=== PATIENT | female | born 1995 | race Hispanic/Latino ===

== ENCOUNTER 2017-05-23 19:31 | Observation (INO) | payer OTHER, SELFPAY ==
[2017-05-23 20:29] LABS: BASOPHILS % (AUTO) 0.2 % (0.0-5.0); EOSINOPHILS % (AUTO) 0.2 % (0.0-8.0); HEMATOCRIT 34.8 % (36-48); LYMPHOCYTES % (AUTO) 4.4 % (21.0-51.0); MEAN CORPUSCULAR HEMOGLOBIN 31.6 pg (27.0-33.0); MEAN CORPUSCULAR HGB CONC 34.6 g/dL (32.0-36.0); MEAN CORPUSCULAR VOLUME 91.4 fL (80-100); MONOCYTES % (AUTO) 3.1 % (3.0-13.0); NEUTROPHILS % (AUTO) 92.1 % (40.0-77.0); PLATELET COUNT (AUTO) 276 K/uL (130-400); RED BLOOD CELL COUNT(AUTO) 3.81 MIL/uL (4.00-5.50); RED CELL DISTRIBUTION WIDTH 12.5 % (11.0-15.5); WHITE BLOOD COUNT (AUTO) 17.6 K/uL (4.8-10.8)
[2017-05-23 20:41] LABS: CARBON DIOXIDE 27 mmol/L (21-32); CHLORIDE 98 mmol/L (101-111); CREATININE 0.7 mg/dL (0.5-1.5); GLOMERULAR FILTR. RATE CALC 115 mL/min (>60); GLUCOSE,RANDOM 109 mg/dL (70-105); POTASSIUM 3.9 mmol/L (3.5-5.1); SODIUM SERUM 134 mmol/L (136-145); UREA NITROGEN, BLOOD 6 mg/dL (7-18)
[2017-05-23 20:47] LABS: APPEARANCE,URINE Cloudy (CLEAR); BILIRUBIN,URINE Negative (NEGATIVE); COLOR,URINE Orange (YELLOW); GLUCOSE, URINE (UA) Negative (NEGATIVE); HCG,QUAL RESULT NEGATIVE (NEGATIVE); KETONES,URINE 15 mg/dL (NEGATIVE); LEUKOCYTE ESTERASE ,URINE Small (NEGATIVE); NITRATE,URINE Negative (NEGATIVE); OCCULT BLOOD,URINE Large (NEGATIVE); PROTEIN,URINE Trace (NEGATIVE)
[2017-05-23 20:47] LABS: ALANINE AMINOTRANSFERASE 21 U/L (12-78); ALBUMIN 3.6 g/dL (3.5-5.0); AMYLASE 42 U/L (25-115); ASPARTATE AMINOTRANSFERASE 24 U/L (10-37); BILIRUBIN,TOTAL 0.3 mg/dL (0.2-1.0); TOTAL PROTEIN, SERUM 8.3 g/dL (6.0-8.3)
[2017-05-23 20:48] LABS: LIPASE < 50 U/L (114-286)
[2017-05-23 20:53] LABS: BACTERIA,URINE Few /HPF (None Seen); RBC,URINE Full Field /HPF (0-1)
[2017-05-23] MEDS ORDERED: IOPAMIDOL-370 75 ML VIAL IV ONE (21:21)
[2017-05-23] MEDS ORDERED: NAPROXEN 500 MG TABLET PO PRN (23:45)
[2017-05-23] MEDS ORDERED: ONDANSETRON HCL MDV 20ML 2 MG/ML VIAL IVP PRN (23:45)
[2017-05-23] MEDS ORDERED: LACTATED RINGERS 1000ML 1,000 ML IV SCH (23:45)
[2017-05-23] MEDS ORDERED: MORPHINE SULFATE 2 MG/ML 1ML SYG IVP PRN (23:45)
[2017-05-24] VITALS (22 sets, daily range): BP systolic 89–125; BP diastolic 56–82
[2017-05-24] MEDS ORDERED: ACETAMINOPHEN EXTRA STRENGTH 500 MG TABLET ONE (01:29)
[2017-05-24 07:10] LABS: BASOPHILS % (AUTO) 0.3 % (0.0-5.0); HEMATOCRIT 37.5 % (36-48); LYMPHOCYTES % (AUTO) 7.2 % (21.0-51.0); MEAN CORPUSCULAR HEMOGLOBIN 31.1 pg (27.0-33.0); MEAN CORPUSCULAR HGB CONC 34.4 g/dL (32.0-36.0); MEAN CORPUSCULAR VOLUME 90.6 fL (80-100); MONOCYTES % (AUTO) 5.9 % (3.0-13.0); NEUTROPHILS % (AUTO) 86.6 % (40.0-77.0); PLATELET COUNT (AUTO) 281 K/uL (130-400); RED BLOOD CELL COUNT(AUTO) 4.14 MIL/uL (4.00-5.50); RED CELL DISTRIBUTION WIDTH 12.3 % (11.0-15.5)
[2017-05-24 07:16] LABS: CREATININE 0.6 mg/dL (0.5-1.5)
[2017-05-24] MEDS ORDERED: CEFOXITIN SODIUM 2 GM VIAL ONE (07:29)
[2017-05-24] MEDS ORDERED: LACTATED RINGERS 1000ML 1,000 ML IV ONE (07:39)
[2017-05-24] MEDS ORDERED: MORPHINE SULFATE 4 MG/1ML SYG ONE (07:39)
[2017-05-24] MEDS ORDERED: GLYCOPYRROLATE 0.2 MG/ML 5 ML VIAL ONE (09:18)
[2017-05-24] MEDS ORDERED: LIDOCAINE HCL MPF 1% 5ML VIAL ONE (09:18)
[2017-05-24] MEDS ORDERED: DEXAMETHASONE SOD PHOSPHATE 10MG/ML 1ML VIAL ONE (09:18)
[2017-05-24] MEDS ORDERED: LIDOCAINE PF 2% 5ML ABBOJECT ONE (09:18)
[2017-05-24] MEDS ORDERED: PHENYLEPHRINE HCL 10 MG/ML 1ML VIAL IV ONE (09:18)
[2017-05-24] MEDS ORDERED: ONDANSETRON HCL MDV 20ML 2 MG/ML VIAL ONE (09:18)
[2017-05-24] MEDS ORDERED: FENTANYL CITRATE PF 50 MCG/1 ML 2ML VIAL ONE (09:19)
[2017-05-24] MEDS ORDERED: LIDOCAINE HCL 4% LTA SOL 4 ML VIAL ONE (09:19)
[2017-05-24] MEDS ORDERED: ROCURONIUM BROMIDE 10MG/1ML 5ML VL ONE (09:19)
[2017-05-24] MEDS ORDERED: PROPOFOL 10 MG/ML 20ML VIAL IV ONE ×2 (09:19→10:18)
[2017-05-24] MEDS ORDERED: MIDAZOLAM HCL 1 MG/ML 2ML VIAL ONE (09:19)
[2017-05-24] MEDS ORDERED: LIDOCAINE HCL 2% JELLY 5 ML ONE (09:19)
[2017-05-24] MEDS ORDERED: ONDANSETRON HCL 4 MG/2 ML VIAL IVP PRN (10:15)
[2017-05-24] MEDS ORDERED: ACETAMINOPHEN-CODEINE 300/30MG TAB PO PRN (10:15)
[2017-05-24] MEDS ORDERED: MORPHINE SULFATE 4 MG/1ML SYG IVP PRN (10:30)
[2017-05-24] MEDS ORDERED: CEFOXITIN 1GM+NS 100ML 100 ML IV SCH (15:00)
[2017-05-24] MEDS: CEFOXITIN SODIUM 1 GM VIAL IVP SCH ×2 (15:52→20:58)
[2017-05-24] MEDS: ACETAMINOPHEN-CODEINE 300/30MG TAB PO PRN ×2 (16:03→23:16)
[2017-05-25 03:29] VITALS: BP 93/53
[2017-05-25] MEDS: LACTATED RINGERS 1000ML 1,000 ML IV SCH ×2 (06:02→06:12)
[2017-05-25] MEDS ORDERED: ACET1TAB12 PO (10:19)
[2017-05-25 11:29] VITALS: BP 89/57
== END 2017-05-25 13:25 | disposition home or self-care (01) ==
LOC: EDH 19:31 → EDHIP 22:55 → WSH 05-24 11:15
PROVIDERS: ADMIT Surgery; ATTEND Surgery
DX: K35.80 Unspecified acute appendicitis (principal); Z88.2 Allergy status to sulfonamides
CPT/HCPCS: 36415 ×2; 44950; 74177; 80048; 80053; 81001; 81025; 82150; 83690; 85025 ×2; 88304; 96374; 96376; 99285; A4218 ×2; A4450; A4452; A4930; G0378 ×38; J0694 ×2; J1100; J2001; J2250; J2270; J2370; J2704 ×2; J3010; J3490 ×3; J7120 ×2; Q9967

== ENCOUNTER 2018-03-22 12:36 | Emergency (ER) | payer OTHER ==
[~2018-03-22 12:36] MED LIST: ACET1TAB12 PO
[2018-03-22] MEDS ORDERED: ACETAMINOPHEN EXTRA STRENGTH 500 MG TABLET ONE (14:27)
== END 2018-03-22 16:07 | disposition home or self-care (01) ==
LOC: EDH 12:36
DX: S06.0X0A Concussion without loss of consciousness, initial encounter (principal); S16.1XXA Strain of muscle, fascia and tendon at neck level, initial encounter; Z88.2 Allergy status to sulfonamides; W18.2XXA Fall in (into) shower or empty bathtub, initial encounter; Y93.89 Activity, other specified; Y92.89 Other specified places as the place of occurrence of the external cause; Y99.8 Other external cause status
CPT/HCPCS: 72125